=== PATIENT | female | born 1980 | race Caucasian/White ===

== ENCOUNTER 2018-12-23 17:49 | Inpatient (IN) | payer OTHER, SELFPAY ==
[2018-12-23 17:57] VITALS: BMI 46.5
--- NOTE | 2018-12-23 18:14 | HP.PCM_ITS ---
Problem List (1) Cellulitis Status: Acute Qualifiers: Site of cellulitis: face Qualified Code(s): L03.211 - Cellulitis of face (2) Morbid obesity Status: Chronic (3) Nicotine dependence Status: Acute Qualifiers: Nicotine product type: cigarettes Substance use status: unspecified nicotine-induced disorder Qualified Code(s): F17.219 - Nicotine dependence, cigarettes, with unspecified nicotine-induced disorders History of Present Illness Date of Admission: 12/23/18 Chief Complaint: Facial swelling - 2 days The patient is a 38 year old F with no significant past medical history, who comes in with right facial swelling that started 2 nights ago. Patient woke up with swelling over his cheek, and seemed to have gotten worse. She went to the [facility] and was seen and given IV Unasyn and pain medication. She had CT scan of the face significant inflammatory warp changer the right maxillary antrum and the surrounding soft tissues especially the muscles of mastication involving the right temporal exam lateral pterygoid muscles. There was no obvious fluid collection or bony erosion. Patient admits to dental caries. Shee denied any fever or chills or shortness of breath. She requested transfer to [facility]. Her white cell count was 14.7, hemoglobin 13.1, platelet 343, sodium was 140, potassium 4.1, chloride 105, bicarbonate 27, glucose 143, BUN 10, creatinine 0.78, test was negative. 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 Paternal History Items: - - Patient was adopted. Review of Systems Constitutional: Denies: Anorexia, Chills, Fever, Malaise, Weakness, Weight Change, Fatigue Eyes: Denies: Blurred vision, Cataracts, Conjunctivae Inflammation, Pain, Redness, Vision Change HEENT: Denies: Difficulty Hearing, Difficulty Swallowing, Head Aches, Hearing Changes, Sinus Congestion, Sinus Drainage Cardiovascular: Denies: Chest Pain, Claudication, Orthopnea, Palpitations, Pa roxysmal Noc. Dyspnea Respiratory: Denies: Cough, Hemoptysis, Shortness of breath at rest, Shortness of breath upon exertion, Sputum production Gastrointestinal: Denies: Abdominal Pain, Constipation, Hematemesis, Nausea, Vomiting Genitourinary: Denies: Dysuria, Frequency Musculoskeletal: Denies: Joint Pain, Joint stiffness, Joint swelling, Joint Tenderness Skin: Denies: Rash, Wounds Neurological: Denies: Difficulty swallowing, Focal weakness, Numbness, Tingling Psychiatric: Denies: Anxiety, Depression, Homicidal Ideations, Suicidal Ideations Hematologic/ Lymphatic: Denies: Easy Bruising, Easy Bleeding VTE Information - Inpt Only VTE Present on Admission: No VTE Pharm Prophylaxis ordered?: Yes Patient Problems: Active and Suspected Problems Cellulitis (Acute) Nicotine dependence (Acute) - Physical Exam General: Alert, Oriented x3, Cooperative, No apparent distress HEENT: Atraumatic, PERRLA, EOMI, Normocephalic Oral: Moist Mucosa Neck: Supple Lungs: Clear to auscultation, Normal air movement Cardiovascular: Regular rate, Regular Rhythm, Normal S1, Normal S2, No murmurs Abdomen: Bowel Sounds Present, Soft, Non Tender, Non-Distended, No Hepato- splenomegaly Extremities: No edema Skin: No rashes, No breakdown Musculoskeletal: No Tenderness to Palpation of Joints or Extremities Lymphatic: No Cervical, Supraclavicular, or Inguinal Adenopathy Neurological: Cranial nerves II-XII grossly intact, Neuro grossly intact Psych/Mental Status: Normal Affect, Appropriate Assessment/Plan All Active Problems Cellulitis (Acute) Nicotine dependence (Acute) 38 year old F with no significant past medical history, who comes in with right facial swelling that started 2 nights ago. 1. Right facial/Maxillary cellulitis without sepsis, secondary to dental caries Plan: Admit to MedSurg floor, IV fluids, IV antibiotics - IV Unasyn, maxillofacial consult 2. Morbid Obesity, BMI 46.5, diet and exercises recommended. 3. DVT PPx- early ambulation Code Visit Inpatient E&M: 53325 Init Hosp L3
[2018-12-23 18:47] VITALS: BP 132/75; PULSE 86; RESP 18; TEMP 36.6; O2SAT 97
[2018-12-23 19:32] VITALS: PULSE 111
[2018-12-23] MEDS: oxyCODONE 5 MG Tablet PO (19:50)
[2018-12-23] MEDS: 0.9% Normal Saline 1,000 ML 75 ML IV (21:32)
[2018-12-23] MEDS: Naproxen 500 MG Tablet PO (21:32)
[2018-12-23 21:40] VITALS: BP 131/74; PULSE 84; RESP 16; TEMP 37.2; O2SAT 99
[2018-12-24] VITALS (8 sets, daily range): BP systolic 99–122; BP diastolic 52–75; PULSE 54–80; RESP 16–18; TEMP 36.3–36.9; O2SAT 98–100
[2018-12-24] MEDS: oxyCODONE 5 MG Tablet PO ×2 (03:53→21:39)
[2018-12-24 05:11] LABS: Absolute Lymphocyte Count 3.26 X10^3/ul (0.83-4.51); Absolute Neutrophil Count 5.3 X10^3/uL (2.0-7.7); Basophil# 0.05 X10^3/uL; Basophil% 0.5 % (0-1); Eosinophil# 0.49 X10^3/uL; Hematocrit 35.2 % (37-47); Hemoglobin 11.4 g/dl (12.0-15.0); Lymphocyte # 3.26 X10^3/ul (4.0); Lymphocyte % 33.1 % (19-41); Mean Corp Hgb Conc 32.4 g/gl (32-36); Mean Corpuscular Hgb 26.7 pg (27.0-32.0); Mean Corpuscular Volume 82.4 fL (81-99); Mean Platelet Vol. 8.4 fl (6.2-12.0); Monocyte# 0.75 X10^3/uL; Monocyte% 7.6 % (0-10); Neutrophil # 5.27 X10^3/uL (2.7-7.7); Neutrophil % 53.5 % (47-70); Platelet Count 299 K/mm3 (150-450); RBC Distribution Width CV 15.1 % (11.6-14.6); RBC Distribution Width SD 44.4 fl (35.1-43.9); Red Blood Count 4.27 M/mm3 (4.2-5.4); White Blood Count 9.9 K/mm3 (4.4-11.0)
[2018-12-24 05:18] LABS: POSITIVE COUNT NO; POSITIVE DIFFERENTIAL NO; POSITIVE MORPHOLOGY NO
[2018-12-24 05:35] LABS: ALB/GLOB Ratio 0.8 RATIO (0.9-2.4); AST(SGOT) 6 U/L (15-37); Alanine Aminotransfer ALT/SGPT 13 U/L (13-56); Albumin, Serum 2.7 g/dL (3.2-5.0); Alkaline Phosphatase 81 U/L (45-117); Anion Gap 4 (5-15); BUN 10 mg/dL (7-18); BUN/Creat Ratio 10.7 RATIO (10-20); Chloride 110 mmol/L (98-107); Creatinine, Serum 0.93 mg/dL (0.55-1.02); EST Glomerular Filtration Rate 72 mL/min (>60); Est Glom Filt Rate - Afr Amer 87 mL/min (>60); Estimated Creatinine Clearance 77.53 ml/min; Globulin 3.4 g/dL (2.2-4.2); Glucose 156 mg/dL (74-106); Potassium 3.7 mmol/L (3.5-5.1); Protein, Total 6.1 g/dL (6.4-8.2); Sodium Level 141 mmol/L (136-145)
[2018-12-24 07:57] LABS: Hemoglobin A1c 6.1 % (4.2-6.3)
--- NOTE | 2018-12-24 08:04 | PCM.PROGNOTE ---
Patient Problems: Active and Suspected Problems Cellulitis (Acute) Subjective: Chief complaint: Follow-up after admission for right facial/maxillary cellulitis attributed to dental caries. Patient seen and examined. No acute events overnight. Right side of her face and cheek is still swollen, mild erythema. Denies fever chills. Denied pain on swallowing or mastication. Her vital signs are stable. - Physical Exam General: Alert, Oriented x3, Cooperative, No apparent distress HEENT: Atraumatic, PERRLA, EOMI, Normocephalic Oral: Moist Mucosa, No Gingival or Mucosal Lesions/ Ulcerations, - - Dental caries on the upper and lower incisors on the right side, soft tissue swelling. Swelling and erythema on the right cheek. Neck: Supple, No JVD, Negative Carotid Bruits, Trachea Midline, Thyroid Normal Size and Texture Lungs: Clear to auscultation, Normal air movement, No rhonchi, No wheeze, No rales Cardiovascular: Regular rate, Regular Rhythm, Normal S1, Normal S2, No murmurs, PMI Normal Abdomen: Bowel Sounds Present, Soft, Non Tender, Non-Distended, No Hepato-splenomegaly, Obese Extremities: No clubbing, No cyanosis, No edema Skin: No rashes, No breakdown Lymphatic: No Cervical, Supraclavicular, or Inguinal Adenopathy Neurological: Cranial nerves II-XII grossly intact, Motor Exam 5/5 strength throughout Psych/Mental Status: Normal Affect, Appropriate, Alert and oriented to time, place, person, mood and affect Vital Signs Temp Pulse Resp BP Pulse Ox 97.4 F L 69 18 99/65 99 12/24/18 03:40 12/24/18 04:01 12/24/18 03:40 12/24/18 03:40 12/24/18 03:40 Oxygen Delivery Method Room Air Weight: 288 lb 3.2 oz Body Mass Index (BMI) 46.5 Intake and Output for Last 24 Hours 12/22/18 12/23/18 12/24/18 23:59 23:59 23:59 Intake Total 1580 / 1580 Balance 1580 / 1580 Laboratory Tests Past 24 Hrs 12/24/18 12/24/18 12/24/18 05:04 05:04 05:04 WBC 9.9 RBC 4.27 Hgb 11.4 L Hct 35.2 L MCV 82.4 MCH 26.7 L MCHC 32.4 RDW 15.1 H RDW Differential 44.4 H Plt Count 299 MPV 8.4 Immature Gran % (Auto) 0.300 Neut % (Auto) 53.5 Lymph % (Auto) 33.1 Rhea % (Auto) 7.6 Eos % (Auto) 5.0 Baso % (Auto) 0.5 Absolute Neuts (auto) 5.3 Absolute Lymphs (auto) 3.26 Total Counted Not Reportable Sodium 141 Potassium 3.7 Chloride 110 H Carbon Dioxide 27.0 Anion Gap 4 L BUN 10 Creatinine 0.93 Estim Creat Clear Calc 77.53 Est GFR (MDRD) Af Amer 87 Est GFR (MDRD) Non-Af 72 BUN/Creatinine Ratio 10.7 Glucose 156 H Hemoglobin A1c 6.1 Calcium 8.0 L Total Bilirubin 0.40 AST 6 L ALT 13 Alkaline Phosphatase 81 Total Protein 6.1 L Albumin 2.7 L Globulin 3.4 Albumin/Globulin Ratio 0.8 L Medical Necessity - Tobacco Use Smoking Status: Current every day smoker Tobacco Use: Cigarettes Assessment/Plan All Active Problems Cellulitis (Acute) This is a 38 years old female patient admitted directly from outside facility for right facial/maxillary cellulitis secondary to dental caries. #1 acute right facial/maxillary cellulitis: Patient has significant dental caries on the right side, both an upper incisors. Reportedly, she had CT scan neck done at the outside facility that revealed significant inflammatory changes over the right maxillary antrum and surrounding tissue and muscles, no evidence of fluid collection or abscess formation. Patient is on IV Unasyn. Her vital signs are stable, afebrile. Yesterday, WBC was 14.7, it came down back to normal today. Maxillofacial surgery consulted, awaiting their recommendations. Plan to continue same treatment. #2 morbid obesity: Diet and exercise recommended. #3 tobacco abuse: She is on NicoDerm patch. #4 DVT prophylaxis: Low risk patient, no prophylaxis indicated, ambulate. This note was generated with [employer] dictation software. It may contain incorrect words, spelling, and punctuation that were not noted in checking the note before signing. Code Visit Inpatient E&M: 22958 Subs Hosp L2
[2018-12-24] MEDS: Naproxen 500 MG Tablet PO ×2 (08:26→14:07)
--- NOTE | 2018-12-24 11:15 | CASEMGMT ---
BEULAH COVARRUBIAS Face to Face with patient for initial transition planning/care coordination assessment. RN CM introduced self and role at [facility]. Patient lying in bed, alert and oriented. Patient willing to participate in assessment and is able to answer all questions appropriately. Care providers, pharmacy, and demographics verified. Patient wishes to discharge home, denies need for home health at this time. Patient states she has no further needs or concerns at this time. CM to follow for discharge planning needs that may arise. PCP: Vipul Specialists: None [facility]erred [facility]acy: [facility] Insurance: MMO Prescription Benefit: yes Living Will/HPOA: none LNOK: mother Living Arrangements: Patient lives alone in an apartment. 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 Disposition Plan: Patient to discharge home with family support and follow-up plans in place. Helen NOEL, RN, CM
[2018-12-24] MEDS: 0.9% Normal Saline 1,000 ML 75 ML IV (11:49)
[2018-12-25 03:20] VITALS: BP 111/67; PULSE 66; RESP 16; TEMP 36.5; O2SAT 99
[2018-12-25] MEDS: Naproxen 500 MG Tablet PO (03:24)
--- NOTE | 2018-12-25 08:01 | DCINST_ITS ---
- Discharge Diagnoses Current Active Problems: Current Active and Chronic Problems Cellulitis (Acute) Morbid obesity (Chronic) Nicotine dependence (Chronic) You will use the following diet at home:: Regular Your food should be the consistency of: Regular Discharge Activity: Return to Normal Activity Weight Bearing Status: Full weight bearing Call your doctor if you observe: Fever of 101 or Higher, Shortness of breath, Dizziness, Fainting spells, Chest pain, Increased palpitations (irregular heartbeat), Uncontrolled pain Allergies/Adverse Reactions: Allergies No Known Allergies Allergy (Verified 12/23/18 19:05) Medications to take at Discharge Cholecalciferol (Vitamin D3) [Vitamin D3] 2,000 unit PO DAILY 12/23/18 Naproxen 500 mg PO BID PRN PRN 12/23/18 Amox/Clavulanate Tablet [Augmentin Tablet] 875 mg PO Q12H #14 tablet 12/25/18 The following prescriptions were given: Amox/Clavulanate Tablet [Augmentin Tablet] 875 mg PO Q12H #14 tablet Primary Care Physician: Marie Matthew NP-C [Primary Care Provider] - Please follow up with your Primary Care Physician in: 1 week. Test Results: Test results from this visit will be discussed in further detail at your follow- up appointment, if applicable. Please Follow Up With: Joel Irving DDS When: This coming week.. Please call his office.
[2018-12-25 10:22] VITALS: BP 140/89; PULSE 89; RESP 18; TEMP 37.3; O2SAT 98
[2018-12-25] MEDS: oxyCODONE 5 MG Tablet PO (11:08)
[2018-12-25] MEDS: Acetaminophen 325 MG Tablet 650 MG PO (11:09)
--- NOTE | 2018-12-25 13:31 | PCM.DC.SUM ---
Discharge Date and Diagnosis Date of Admission: 12/23/18 Date of Discharge: 12/25/18 - Primary Discharge Diagnosis Acute right facial/maxillary cellulitis attributed to dental caries. - Secondary Discharge Diagnosis Chronic Problems Morbid obesity (Chronic) Nicotine dependence (Chronic) Hospital Course and Treatment Operations: None Procedures: None Summary of Care Provided: Patient seen and examined on the day of discharge and appeared to be stable to be discharged home. Swelling on the right side of her face and cheek started to subside, complained of mild pain. She has been afebrile, other vital signs are stable. The patient is a 38 year old F admitted directly from outside facility for right facial/maxillary cellulitis due to dental caries. She was found to have significant dental caries on the right upper and lower incisors with soft tissue swelling and edema. At the outside facility, she was found to have leukocytosis and she had CT scan neck that revealed significant inflammatory changes over the right maxillary antrum and surrounding tissues and involves the muscles without evidence of fluid collection or abscess formation. Patient was treated with IV Unasyn, pain medications and IV fluids. With IV antibiotic therapy, her white blood cell count returned back to normal. Maxillofacial surgery consulted but Dr. Irving is out of town until this coming Saturday. The swelling of the right face started to improve and subside and patient remained afebrile. With local improvement of the cellulitis I felt, being afebrile for 24 hours and resolution of leukocytosis, that the patient can be safely treated with IV antibiotics while in the hospital and then transition to oral antibiotic upon discharge and there was no urgent need or indication for referral or transfer to another facility for evaluation by maxillofacial surgery. I spoke with the patient about this issue and she agreed to stay in this hospital and to be discharged with oral antibiotics. Patient discharged home in a stable medical condition, discharged on Augmentin twice daily for 7 days of treatment, discharged on OxyIR PRN 12 hours for pain, recommended follow-up with maxillofacial surgery this coming week, follow-up with PCP in 1 week. - Physical Exam General: Alert, Oriented x3, Cooperative, No apparent distress HEENT: Atraumatic, PERRLA, EOMI, Normocephalic Oral: Moist Mucosa, No Gingival or Mucosal Lesions/ Ulcerations, - - Significant dental caries and soft tissue swelling and edema of the right upper and lower incisors, lower jaw. Neck: Supple, No JVD, Negative Carotid Bruits, Trachea Midline, Thyroid Normal Size and Texture Lungs: Clear to auscultation, Normal air movement, No rhonchi, No wheeze, No rales Cardiovascular: Regular rate, Regular Rhythm, Normal S1, Normal S2, No murmurs, No Ectopic Activity Abdomen: Soft, Non Tender, Non-Distended, No Hepato-splenomegaly Extremities: No clubbing, No cyanosis, No edema Skin: No rashes, No breakdown Lymphatic: No Cervical, Supraclavicular, or Inguinal Adenopathy Neurological: Cranial nerves II-XII grossly intact, Motor Exam 5/5 strength throughout Psych/Mental Status: Normal Affect, Appropriate Vital Signs Temp Pulse Resp BP Pulse Ox 99.1 F 89 18 140/89 H 98 12/25/18 10:22 12/25/18 10:22 12/25/18 10:22 12/25/18 10:22 12/25/18 10:22 Oxygen Delivery Method Room Air Weight: 288 lb 2.307 oz Body Mass Index (BMI) 46.5 Intake and Output for Last 24 Hours 12/23/18 12/24/18 12/25/18 23:59 23:59 23:59 Intake Total 2610 / 2610 1852 Balance 2610 / 2610 1852 Discharge Activity: Return to Normal Activity Weight Bearing Status: Full weight bearing Call your doctor if you observe: Fever of 101 or Higher, Shortness of breath, Dizziness, Fainting spells, Chest pain, Increased palpitations (irregular heartbeat), Uncontrolled pain Home Medications: Medications to take at Discharge Cholecalciferol (Vitamin D3) [Vitamin D3] 2,000 unit PO DAILY 12/23/18 Naproxen 500 mg PO BID PRN PRN 12/23/18 Amox/Clavulanate Tablet [Augmentin Tablet] 875 mg PO Q12H #14 tablet 12/25/18 Oxycodone [Oxyir] 5 mg PO Q12H PRN PRN 3 Days #7 tab 12/25/18 Following Prescrptions Were Given to Patient: Oxycodone [Oxyir] 5 mg PO Q12H PRN PRN 3 Days #7 tab PRN Reason: pain Amox/Clavulanate Tablet [Augmentin Tablet] 875 mg PO Q12H #14 tablet Primary Care Physician: Marie Matthew NP-C [Primary Care Provider] - Please follow up with your Primary Care Physician in: 1 week. Please Follow Up With: Joel Irving DDS When: This coming week.. Please call his office. Disposition: Home Minutes spent on discharge:: 25 Patient Condition:: Stable Medical Necessity - Tobacco Use Smoking Status: Current every day smoker Tobacco Use: Cigarettes Meaningful Use Info Meaningful Use Diagnoses (Choose all that apply): None applicable Code Visit Inpatient E&M: 56564 Disch Hosp
== END 2018-12-25 11:33 | disposition home or self-care (01) | DRG 603 ==
PROVIDERS: Admitting Provider Internal Medicine; Family Provider Nurse Practitioner Family; PCP Nurse Practitioner Family; Referring Provider Internal Medicine; Visit Provider Hospitalist
DX: L03.211 Cellulitis of face (principal); Z68.42 Body mass index [BMI] 45.0-49.9, adult; E66.01 Morbid (severe) obesity due to excess calories; K02.9 Dental caries, unspecified; F17.210 Nicotine dependence, cigarettes, uncomplicated
CPT/HCPCS: 36415; 80053; 83036; 85025; 97802; 99406; J7030; J0295

== ENCOUNTER 2019-03-25 14:30 | Emergency (ER) | payer OTHER, SELFPAY ==
[2018-12-23 17:57] VITALS: BMI 46.5
[2019-03-25 14:30] VITALS: BP 132/79; PULSE 90; RESP 16; O2SAT 97
[2019-03-25 14:31] VITALS: BP 132/79; PULSE 95; RESP 16; TEMP 36.4; O2SAT 97; BMI 47.3
--- NOTE | 2019-03-25 14:46 | US_ITS ---
STUDY: FIRST TRIMESTER OBSTETRICAL ULTRASOUND REASON FOR EXAM: Female, 38 years old. Ectopic . Right lower quadrant pain. HCG 24,000. LMP: 01/13/2019. TECHNIQUE: Transvaginal. TECHNICAL QUALITY: Adequate. PRIOR ULTRASOUND: None. FINDINGS: Gravid uterus measures 10.1 x 5.9 x 6.6 cm. Intrauterine gestational sac is present with a normal yolk sac. There is a single live intrauterine gestation. Cardiac activity is documented with heart rate of 124. Mean sonographic estimated gestational age based on crown-rump length measures 6 weeks 2 days, with estimated date of delivery 11/16/2019. Right ovary is normal in size and echogenicity, measuring 3.1 x 1.8 x 2 cm. No mass or dominant cyst. Left ovary is not visualized. No free fluid in the cul-de-sac. US/Transvaginal w/Preg US IMPRESSION: Single live intrauterine gestation with EGA 6 weeks 2 days. Electronically Signed: Yvonne Keller MD at 16:52 EDT Tel , Service support ,
--- NOTE | 2019-03-25 15:04 | ED.DCSUM_ITS ---
- ER Visit Summary Date of Service: 03/25/19 Chief Complaint: Here for ultrasound History of Present Illness: The patient is a 38 F who thinks she is about 8 weeks . She was seen in an outside emergency department and had a hCG quant of 24,000. Basic labs and urinalysis unremarkable. She was referred here because they did not have ultrasound available. She complains of pain but denies any other symptoms like bleeding, discharge, fever, or any other symptoms. Physical Examination: Afebrile. Blood pressure 132/79. No acute distress. Abdomen is soft. Mild tenderness in the right pelvis. Skin appears normal. Test Results: Ultrasound ordered. Emergency Department Course and Treatment: Patient presents to rule out ectopic . She was already discussed with Dr. Suero. There is no indication to repeat her other testing. I performed a bedside ultrasound and identified the uterus, but I did not identify an intrauterine . Formal ultrasound was ordered. Live intrauterine at 6 weeks and 2 days. heart rate of 124. 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 Return for bleeding, increasing pain, or any other concerning symptoms. Treatment Plan: As above Disposition: Discharge Impression: 1. Live intrauterine This note was generated with [employer] software. It may contain incorrect words, spelling, and punctuation that were not noted in review of the chart prior to signing ED Disposition - Plan for ED Patient: Referrals: Marie Matthew NP-C [Primary Care Provider] -
--- NOTE | 2019-03-25 17:01 | ED.DEP ---
ED Disposition - Plan for ED Patient: Instructions: Adapting to : First Trimester Referrals: Nikhil Suero MD [STAFF PHYSICIAN] -
[2019-03-25 17:13] VITALS: RESP 16
== END 2019-03-25 17:14 | disposition home or self-care (01) ==
LOC: ED 15:01
PROVIDERS: Emergency Provider Emergency Medicine; Family Provider Nurse Practitioner Family; PCP Nurse Practitioner Family
DX: O26.891 Other specified pregnancy related conditions, first trimester (principal); R10.2 Pelvic and perineal pain; O99.331 Smoking (tobacco) complicating pregnancy, first trimester; F17.200 Nicotine dependence, unspecified, uncomplicated; Z3A.01 Less than 8 weeks gestation of pregnancy
CPT/HCPCS: 76817; 99282

== ENCOUNTER → 2019-08-19 11:23 | Outpatient (CLI) | payer OTHER, SELFPAY ==
[2019-08-19 12:09] LABS: Hematocrit 34.3 % (37-47); Hemoglobin 10.1 g/dL (12.0-15.0); Mean Corp Hgb Conc 29.4 g/dL (32-36); Mean Corpuscular Hgb 21.4 pg (27.0-32.0); Mean Corpuscular Volume 72.8 fL (81-99); Mean Platelet Vol. 9.2 fl (6.2-12.0); Platelet Count 345 K/mm3 (150-450); RBC Distribution Width CV 17.6 % (11.6-14.6); RBC Distribution Width SD 46.1 fl (35.1-43.9); Red Blood Count 4.71 M/mm3 (4.2-5.4)
[2019-08-19 12:23] LABS: International Normalized Ratio 1.1; Prothrombin Time (Protime)PT. 13.6 SECONDS (11.7-14.9)
[2019-08-19 12:24] LABS: Partial Thromboplast Time 31.1 Seconds (24.1-36.2)
[2019-08-19 12:40] LABS: Thyroid Stim Hormone (TSH) 3.77 uIU/mL (0.358-3.74)
[2019-08-21 12:33] LABS: HPV HC, High Risk Negative (Negative)
== END ==
PROVIDERS: Visit Provider Advanced Practice Midwife
DX: Z12.4 Encounter for screening for malignant neoplasm of cervix (principal); N92.0 Excessive and frequent menstruation with regular cycle
CPT/HCPCS: 36415; 84443; 85027; 85610; 85730; 87624; 88175; G0145

== ENCOUNTER → 2019-10-22 17:12 | Outpatient (CLI) | payer MEDICAID, SELFPAY ==
[2019-10-22 20:21] LABS: Chlamydia Trachomatis by PCR Negative (Negative); Neisserai gonorrhoeae by PCR Negative (Negative); Probe Check PASS; Sample Adequacy Control PASS; Specimen Processing Control PASS
== END ==
PROVIDERS: Referring Provider Obstetrics & Gynecology; Visit Provider Obstetrics & Gynecology
DX: Z11.3 Encounter for screening for infections with a predominantly sexual mode of transmission (principal)
CPT/HCPCS: 87491; 87591

== ENCOUNTER → 2019-10-27 | Outpatient (CLI) | payer MEDICAID, SELFPAY ==
[2019-10-27 17:57] LABS: Absolute Lymphocyte Count 2.76 X10^3/uL (0.83-4.51); Absolute Neutrophil Count 6.8 X10^3/uL (2.0-7.7); Basophil# 0.06 X10^3/uL; Basophil% 0.6 % (0-1); Eosinophil# 0.29 X10^3/uL; Eosinophils% 2.7 % (0-5); Hemoglobin 11.5 g/dL (12.0-15.0); Lymphocyte # 2.76 X10^3/ul (4.0); Mean Corp Hgb Conc 31.1 g/dL (32-36); Mean Corpuscular Hgb 23.5 pg (27.0-32.0); Mean Corpuscular Volume 75.7 fL (81-99); Mean Platelet Vol. 9.1 fl (6.2-12.0); Monocyte# 0.72 X10^3/uL; Monocyte% 6.8 % (0-10); NRBC Flagged by Analyzer 0 % (0-5); Neutrophil # 6.75 X10^3/uL (2.7-7.7); Neutrophil % 63.6 % (47-70); POSITIVE MORPHOLOGY YES; Platelet Count 337 K/mm3 (150-450); RBC Distribution Width SD 58.9 fl (35.1-43.9); Red Blood Count 4.89 M/mm3 (4.2-5.4); White Blood Count 10.6 K/mm3 (4.4-11.0)
[2019-10-27 18:03] LABS: Differential Indicated SCAN CRITERIA MET
[2019-10-27 18:19] LABS: Thyroid Stim Hormone (TSH) 2.47 uIU/mL (0.358-3.74)
[2019-10-27 18:21] LABS: Amphetamine Urine VISTA NEGATIVE (<1000 ng/mL); Barbiturate Urine VISTA NEGATIVE (< 200 ng/mL); Benzodiazepine Urine VISTA NEGATIVE (< 200 ng/mL); Cocaine Urine VISTA NEGATIVE (< 300 ng/mL); Ecstacy Urine VISTA NEGATIVE (< 500 ng/mL); Methadone Urine VISTA NEGATIVE (< 300 ng/mL); PCP Urine VISTA NEGATIVE (< 25 ng/mL); THC Urine VISTA NEGATIVE (< 50 ng/mL); Vista UDS pH Range 6
[2019-10-27 18:32] LABS: Anisocytosis 1+; Differential Comment SCANNED
[2019-10-27 18:58] LABS: Color, Urine Yellow (Yellow); Glucose, Dipstick Normal (Normal); Ketone-Dipstick Negative (Negative); Leukocyte Esterase-Dipstick Negative /ul (Negative); Nitrite-Dipstick Negative (Negative); Occult Blood-Urine Negative /ul (Negative); Protein-Dipstick Negative (Negative); Urine Bilirubin Dipstick Negative (Negative); Urine Clarity Clear (Clear); Urine Urobilinogen Normal (Normal)
[2019-10-28 09:07] LABS: HIV - WCH Non-Reactive (Nonreactive); Hepatitis B Surface Antigen Non-Reactive (Nonreactive); Hepatitis C Antibody Non-Reactive (Nonreactive); Rubella IgG 55.7 IU/mL
[2019-10-29 00:57] LABS: Prenatal RPR NONREACTIVE (NONREACTIVE)
== END | disposition home or self-care (01) ==
PROVIDERS: Referring Provider Obstetrics & Gynecology; Visit Provider Obstetrics & Gynecology
DX: Z34.81 Encounter for supervision of other normal pregnancy, first trimester (principal)
CPT/HCPCS: 80307; 81002; 84443; 85025; 86703; 86762; 86803; 87340

== ENCOUNTER → 2020-03-10 09:11 | Outpatient (CLI) | payer MEDICAID, SELFPAY ==
[2020-03-10 09:43] LABS: Hematocrit 33.8 % (37-47); Hemoglobin 10.9 g/dL (12.0-15.0); Mean Corp Hgb Conc 32.2 g/dL (32-36); Mean Corpuscular Hgb 28.4 pg (27.0-32.0); Platelet Count 213 K/mm3 (150-450); RBC Distribution Width CV 16.8 % (11.6-14.6); RBC Distribution Width SD 53.7 fl (35.1-43.9); Red Blood Count 3.84 M/mm3 (4.2-5.4)
[2020-03-10 09:48] LABS: Glucose Challenge Gest 1H 50g 240 mg/dL (70-140)
== END ==
PROVIDERS: Visit Provider Obstetrics & Gynecology
DX: Z34.82 Encounter for supervision of other normal pregnancy, second trimester (principal)
CPT/HCPCS: 36415; 82950; 85027

== ENCOUNTER 2020-03-22 16:00 | Outpatient (RCR) | payer MEDICAID, SELFPAY | END 2020-04-05 23:59 | disposition home or self-care (01) | LOC: NS 16:00 | PROVIDERS: Visit Provider Obstetrics & Gynecology | DX: Z71.3 Dietary counseling and surveillance (principal); O24.410 Gestational diabetes mellitus in pregnancy, diet controlled; Z3A.00 Weeks of gestation of pregnancy not specified | CPT/HCPCS: 97802; G0108 ==

== ENCOUNTER → 2020-05-12 | Outpatient (CLI) | payer MEDICAID, SELFPAY | END | disposition home or self-care (01) | LOC: LABSPEC 14:58 | PROVIDERS: Visit Provider Obstetrics & Gynecology | DX: Z36.85 Encounter for antenatal screening for Streptococcus B (principal) | CPT/HCPCS: 87081 ==

== ENCOUNTER → 2020-05-25 09:41 | Outpatient (CLI) | payer MEDICAID, SELFPAY ==
[2020-05-25 13:16] LABS: Probe Check PASS; Specimen Processing Control PASS
== END ==
PROVIDERS: Referring Provider Obstetrics & Gynecology; Visit Provider Obstetrics & Gynecology
DX: Z03.818 Encounter for observation for suspected exposure to other biological agents ruled out (principal); Z34.83 Encounter for supervision of other normal pregnancy, third trimester
CPT/HCPCS: 87635; C9803; U0002

== ENCOUNTER 2020-05-27 04:57 | Inpatient (IN) | payer MEDICAID, SELFPAY ==
--- NOTE | 2020-05-26 20:49 | PCM.HPOB.BLA ---
History and Physical Date of Admission: 05/27/20 Chief complaint: Repeat History of present illness: 39-year-old G4, P3 at 39 weeks and 0 days with RONAN: 06/03/20 x 8-week ultrasound arrives for repeat section. Patient denies headache, visual changes, nausea vomiting, chest pain, shortness of breath, right upper quadrant pain. Patient states good movement. Patient denies vaginal bleeding or leakage of fluid. 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: G1: 43-week primary male 06/19/2002 G2 39-week repeat male 02/10/2004 G3: 39-week repeat female 02/27/2006 G4: Current Past medical history: GDM A2 Past surgical history: section x3, D&C Medications: Levemir 20 units every morning Allergies: No known drug allergies Social: Smoker half pack per day, denies alcohol use or drug use Family history: Denies history of DVT or PE Review of systems: Besides the above pertinent positives a full review of systems was performed and found to be negative Physical exam: Vital Signs Temp Pulse Resp BP Pulse Ox 05/27/20 06:00 98.2 F 81 16 111/55 L 98 General: Normal-appearing no acute distress HEENT: Normocephalic atraumatic no cervical lymphadenopathy Cardiac/respiratory: Nonlabored breathing, nonpressured speech, no use of accessory muscles Abdomen: Soft, nontender, gravid. Positive bowel sounds. No rebound tenderness or guarding Extremities: No peripheral edema normal peripheral pulses Neuro: Cranial nerves II through XII intact Psych: Normal affect normal demeanor nonpressured speech Mom's Labs & Results 05/27/20 05/27/20 05/27/20 05:10 05:10 06:41 WBC 12.9 H RBC 4.45 Hgb 12.2 Hct 38.0 MCV 85.4 MCH 27.4 MCHC 32.1 RDW Std Deviation 47.9 H RDW Coeff of Shari 15.3 H Plt Count 237 MPV 8.4 Immature Gran % (Auto) 1.200 H Neut % (Auto) 69.7 Lymph % (Auto) 19.3 [place] % (Auto) 7.8 Eos % (Auto) 1.7 Baso % (Auto) 0.3 Absolute Neuts (auto) 9.0 H Absolute Lymphs (auto) 2.50 Nucleated RBC % 0 POC Glucose 114 H Blood Type O POSITIVE Antibody Screen NEGATIVE Labs Blood Type: O RH: POSITIVE RPR/VDRL/Syphilis Nonreactive Rubella status Immune HbSAg Negative Date Done: 10/27/19 Chlamydia Negative Gonorrhea Negative HIV/AIDS Non-Reactive Group B Strep: Negative Assessment and plan: 39-year-old G4, P3 at 39 weeks and 0 days for repeat with GDM A2 -Admit to labor and delivery -3 g Ancef -Routine orders -GDM A2: For preoperative blood sugar and fasting blood sugar operative day 1. Otherwise no other blood sugars indicated -Anesthesia to see
[2020-05-27] VITALS (21 sets, daily range): BP systolic 82–112; BP diastolic 37–77; PULSE 61–81; RESP 14–16; TEMP 35.9–36.8; O2SAT 95–98; BMI 50.3
[2020-05-27] MEDS: Lactated Ringers 1,000 ML 999 ML IV (05:10)
[2020-05-27 05:33] LABS: Basophil# 0.04 X10^3/uL; Basophil% 0.3 % (0-1); Eosinophil# 0.22 X10^3/uL; Eosinophils% 1.7 % (0-5); Hemoglobin 12.2 g/dL (12.0-15.0); Lymphocyte % 19.3 % (19-41); Mean Corp Hgb Conc 32.1 g/dL (32-36); Mean Corpuscular Hgb 27.4 pg (27.0-32.0); Mean Corpuscular Volume 85.4 fL (81-99); Mean Platelet Vol. 8.4 fl (6.2-12.0); Monocyte# 1.01 X10^3/uL; Monocyte% 7.8 % (0-10); NRBC Flagged by Analyzer 0 % (0-5); Neutrophil # 9.02 X10^3/uL (2.7-7.7); Neutrophil % 69.7 % (47-70); Platelet Count 237 K/mm3 (150-450); RBC Distribution Width CV 15.3 % (11.6-14.6); RBC Distribution Width SD 47.9 fl (35.1-43.9); Red Blood Count 4.45 M/mm3 (4.2-5.4); White Blood Count 12.9 K/mm3 (4.4-11.0)
[2020-05-27] MEDS: Acetaminophen 500 MG Tablet 1000 MG PO ×3 (06:16→18:31)
[2020-05-27] MEDS: Lactated Ringers 1,000 ML 150 ML IV (06:16)
[2020-05-27 06:46] LABS: Bedside Glucose 114 mg/dL (70-110)
[2020-05-27] MEDS: Sodium Citrate/Citric Acid 30 ML UDC PO (07:55)
[2020-05-27] MEDS: Oxytocin 30 units/NS 500 ml 30 UNITS/500 ML IV.SOLN 167 UNITS IV (08:56)
--- NOTE | 2020-05-27 09:28 | PCM.OPRPT ---
Delivery Classification: Scheduled test and research reactor operator: Delores Brian Type of Anesthesia:: Spinal Date of Procedure: 05/27/20 Pre-Operative Diagnosis: History of section, term, GDMA2, AMA Post-Operative Diagnosis: History of section, term, GDM A2, AMA Description of Procedure: Procedure: Repeat low transverse section via Pfannenstiel incision Surgeon: Dr. Cirilo Orosco EBL: 600 cc IV fluids: 1000 cc Urine output: 50 cc Complications: None Specimen: None Findings: Male in vertex position, Apgars 9/9. Normal uterus, tubes, ovaries. Consent: Patient with a history of section and GDM A2 along with AMA in need of repeat section. Patient understands the risk of the procedure includes but is not limited to visceral or vascular injury, prolonged hospitalization, blood loss and need for transfusion, reoperation. Patient stated understanding wished to proceed. All questions were and was answered and consent was signed. Procedure: Patient was brought back to the OR where spinal anesthesia was found to be adequate. 3 g of Ancef were given for infection prophylaxis. Patient was prepared and draped in a dorsal supine position with leftward tilt. A Pfannenstiel incision was made at the skin with a scalpel. Incision was carried down to the fascia with a scalpel. Fascia was excised and extended laterally. Inferior aspect of the fascia was grasped with a Soraya clamp and the underlying rectus) mentalis muscle were dissected off sharply with Rivera scissors. In a similar fashion the superior aspect of the fascia was grasped with a clamp and the underlying rectus muscle was dissected off sharply. Peritoneum was entered bluntly and extended superiorly and inferiorly with good visualization of the bladder. Bladder blade was inserted and vesicouterine peritoneum was identified. Low transverse hysterotomy incision was made. Incision was extended bluntly and laterally. Hand was placed into the hysterotomy and gentle fundal pressure was applied once the bladder blade was removed and the head was brought into the incision. Head and shoulders delivered with ease. Cord was cut and clamped and baby was handed off to nursing. Placenta was delivered via cord traction and fundal massage. IV oxytocin was initiated to facilitate uterine contractions. Uterus was exteriorized and closed in a continuous running fashion. Second layer was performed. Good hemostasis was noted. Uterus was placed back in the abdominal cavity. Good hemostasis was noted. Muscle was closed with mattress suture. Fascia was closed continuous running fashion. Skin was closed in a subcuticular fashion. All counts correct x2. Patient tolerated the procedure well was brought to recovery in a stable condition.
[2020-05-27] MEDS: Lactated Ringers 1,000 ML 100 ML IV ×2 (11:56→22:05)
[2020-05-27] MEDS: Senna/Docusate Sodium 1 Tablet PO (12:21)
--- NOTE | 2020-05-27 12:23 | NURSING ---
Dr. Cirilo Orosco would like a fasting blood sugar tomorrow morning.
[2020-05-27] MEDS: Ketorolac 30 MG/ML Syringe IV ×2 (15:53→22:33)
--- NOTE | 2020-05-27 20:15 | CASEMGMT ---
Social Work Assessment Labor and Delivery Unit Date of Referral: 05/27/2020 Time of Referral: 10:47 Date of Intervention: 05/27/2020 Time of Intervention: 20:15 Reason for Referral: Community resources, History of depression. History obtained from: MEDICAL RECORD, MOTHER OF BABY (MOB) Household composition: MOB reports she and FOB live in an apartment. Educational Status: High School Education Financial Status: Limited Infant Supplies: MOB reports has all needs met for baby including crib, car seat, clothes, diapers, wipes, etc. Childcare/Caregiver(s): MOB and FOB will be main caregivers. Transportation: MOB denies any transportation issues/concerns. Programs/Agencies Involved: [facility], [facility], [facility] Children Services/Legal Issues: MOB reports history of Children Services involvement with 2 other children in the past due to poor housing at that time. MOB reports does she son, Hema age 16 (Father has custody). MOB reports does not have much involvement with daughter, Ariadna age 14. MOB reports FOVickie's mother has custody. MOB denies any current open cases with Children Services. Behavioral Health Issues: Mental Health History: MOB reports history of depression/Post Depression with first child as he was a still born. MOB states was never prescribed medication and did not seek counseling. MOB reports is able to self cope. MOB denies any current concerns with mental health and denies any need for referrals. Substance Use History: MOB denies any history of substance abuse. MOB reports to occasionally consume alcohol and smokes 9-10 cigarettes/day. MOB reports they will not smoke in the house. FOB reports some depression due to his mother having cancer. FOB admits to history of drug use in the past in my 20's. FOB reports after his daughter was born (now age 22) quit using substances. FOB admits to smoking cigarettes. Family/Social Stressors: None reported Support Systems: MOB and FOB report good support from family/friends. Depression/Shaken Baby/Safe Sleeping: Reviewed and resources provided. ASSESSMENT: Met with MOB and FOB in room. Introduced role and reason for referral. MOB and FOB have been together 11 months ( for 2 months). MOB openly discussed prior history of Children Services involvement with 2 older children. MOB denies any open cases. MOB states is connected with [facility] and [facility]. MOB and FOB deny any issues with housing or transportation and report live together in an apartment. MOB discussed history of depression/PPD with first child as he was a still born. MOB reports to be doing well and is attempting to breastfeed. MOB nursing baby boy, Dudley during assessment. MOB delivered earlier today and reports is doing well. MOB and FOB decline any needs. Community resource list for [facility] provided. MOB and FOB thanked this worker for information. Collaboration with nurse, Jina. Jina denies any concerns at this time. PLAN: HOME WITH RESOURCES PROVIDED. No other services requested or indicated. -Shruti Ponce, COLLECTOR OF PORT, MVA REACTOR OPERATOR HEAD
[2020-05-27] MEDS: Enoxaparin 40 MG/0.4 ML Syringe SC (21:14)
--- NOTE | 2020-05-27 22:20 | NURSING ---
Updated Dr. Orosco that patient's urinary output has been low. Mcdaniels catheter removed. Plan is to continue current plan of care and Toradol is okay to give per Dr. Orosco.
[2020-05-27] MEDS: 0.9% Saline Lock 10 ML Syringe IV (22:34)
[2020-05-28] VITALS (7 sets, daily range): BP systolic 103–129; BP diastolic 53–71; PULSE 62–79; RESP 16–18; TEMP 35.9–36.6; O2SAT 96–99
[2020-05-28] MEDS: Acetaminophen 500 MG Tablet 1000 MG PO ×4 (01:28→21:23)
--- NOTE | 2020-05-28 02:30 | NURSING ---
RN into pt room at this time due to noting sound of IV pump alarm. RN noted pt IV placed in right antecubital, alarming due to bent arm. RN encouraged pt to straighten arm. Mother states I can't, I'm trying to feed him (the baby). Pt also states I need to go outside. I need to get away from him (gestured to ) and from this beeping. RN informed pt she would be unable to go outside with IV in place. Pt requests this RN notify primary care RN of pt request. This RN to notify primary RN of pt request.
--- NOTE | 2020-05-28 02:59 | NURSING ---
Patient requesting to go outside to smoke. Informed patient that her IV cannot be removed until she is able to void per policy. Patient verbalized understanding.
[2020-05-28] MEDS: 0.9% Saline Lock 10 ML Syringe IV (06:07)
[2020-05-28 06:22] LABS: Hematocrit 32.3 % (37-47); Hemoglobin 10.4 g/dL (12.0-15.0); Mean Corp Hgb Conc 32.2 g/dL (32-36); Mean Corpuscular Hgb 28.1 pg (27.0-32.0); Mean Corpuscular Volume 87.3 fL (81-99); Mean Platelet Vol. 8.6 fl (6.2-12.0); Platelet Count 192 K/mm3 (150-450); RBC Distribution Width CV 15.7 % (11.6-14.6); RBC Distribution Width SD 49.7 fl (35.1-43.9); White Blood Count 9.5 K/mm3 (4.4-11.0)
--- NOTE | 2020-05-28 06:36 | NURSING ---
Fasting blood glucose 150. Patient has been snacking throughout the night.
[2020-05-28 06:46] LABS: Bedside Glucose 150 mg/dL (70-110)
[2020-05-28 06:52] LABS: ALB/GLOB Ratio 0.6 RATIO (0.9-2.4); AST(SGOT) 18 U/L (15-37); Alanine Aminotransfer ALT/SGPT 14 U/L (13-56); Albumin, Serum 1.9 g/dL (3.2-5.0); Alkaline Phosphatase 101 U/L (45-117); Anion Gap 5 (5-15); BUN 16 mg/dL (7-18); BUN/Creat Ratio 19.5 RATIO (10-20); Calcium,Total 8.1 mg/dL (8.5-10.1); Chloride 108 mmol/L (98-107); Creatinine, Serum 0.82 mg/dL (0.55-1.02); EST Glomerular Filtration Rate 82 mL/min (>60); Est Glom Filt Rate - Afr Amer 100 mL/min (>60); Estimated Creatinine Clearance 87.08 ml/min; Globulin 3.3 g/dL (2.2-4.2); Glucose 141 mg/dL (74-106); Potassium 3.8 mmol/L (3.5-5.1); Protein, Total 5.2 g/dL (6.4-8.2); Sodium Level 138 mmol/L (136-145)
[2020-05-28] MEDS: Ibuprofen 600 MG Tablet PO ×3 (08:53→21:23)
--- NOTE | 2020-05-28 09:11 | PN.OBGYN_ITS ---
Subjective: No overnight complaints. Pain well controlled. Denies chest pain, shortness of breath, nausea vomiting. - Physical Exam Vitals/I&O's: Vital Signs Temp Pulse Resp BP Pulse Ox 96.7 F L 65 18 129/71 H 98 05/28/20 08:45 05/28/20 08:45 05/28/20 08:45 05/28/20 08:45 05/28/20 08:45 Oxygen Delivery Method Room Air Weight: 311 lb 11.738 oz Body Mass Index (BMI) 50.3 Intake and Output for Last 24 Hours 05/26/20 05/27/20 05/28/20 23:59 23:59 23:59 Intake Total 4915 / 4915 4303.33 / 4303.33 Output Total 350 / 350 900 / 900 Balance 4565 / 4565 3403.33 / 3403.33 General: Alert, Oriented x3, Cooperative, No apparent distress HEENT: Atraumatic, Normocephalic Oral: Moist Mucosa Neck: Supple Abdomen: Soft, Non Tender, - - Incision with bandage clean dry and intact Extremities: No clubbing, No cyanosis Psych/Mental Status: Normal Affect, Appropriate Laboratory Results 05/28/20 06:11: POC Glucose 150 H 05/28/20 06:15: WBC 9.5, RBC 3.70 L, Hgb 10.4 L, Hct 32.3 L, MCV 87.3, MCH 28.1, MCHC 32.2, RDW Std Deviation 49.7 H, RDW Coeff of Shari 15.7 H, Plt Count 192, MPV 8.6 05/28/20 06:15: Sodium 138, Potassium 3.8, Chloride 108 H, Carbon Dioxide 25.0, Anion Gap 5, BUN 16, Creatinine 0.82, Estim Creat Clear Calc 87.08, Est GFR (MDRD) Af Amer 100, Est GFR (MDRD) Non-Af 82, BUN/Creatinine Ratio 19.5, Glucose 141 H, Calcium 8.1 L, Total Bilirubin 0.20, AST 18, ALT 14, Alkaline Phosphatase 101, Total Protein 5.2 L, Albumin 1.9 L, Globulin 3.3, Albumin/Globulin Ratio 0.6 L Current Medications Acetaminophen (Acetaminophen 500 Mg Tablet) 1,000 mg PO Q6 [facility] Last Admin: 05/28/20 08:48 Dose: 1,000 mg Documented by: Bisacodyl (Bisacodyl 10 Mg Suppository) 10 mg RECTAL UD PRN PRN Reason: If no BM Diphenhydramine HCl (Diphenhydramine 25 Mg Capsule) 25 mg PO Q6H PRN PRN PRN Reason: ITCHING Stop: 05/28/20 09:53 Enoxaparin Sodium (Enoxaparin 40 Mg/0.4 Ml Syringe) 40 mg SC DAILY [facility] Last Admin: 05/27/20 21:14 Dose: 40 mg Documented by: Hydrocortisone (Hydrocortisone 2.5% Crm) 1 applic TOPICAL TID PRN PRN; Protocol PRN Reason: Discomfort Ibuprofen (Ibuprofen 600 Mg Tablet) 600 mg PO Q6H [facility] Last Admin: 05/28/20 08:53 Dose: 600 mg Documented by: Nalbuphine HCl (Nalbuphine 10 Mg/Ml Ampul) 5 mg IV Q3H PRN PRN PRN Reason: ITCHING Stop: 05/28/20 09:53 Naloxone HCl (Naloxone 0.4 Mg/Ml Syringe) 0.02 mg IV Q1M PRN PRN Reason: RR <10 and pt unresponsive Ondansetron HCl (Ondansetron 4 Mg/2 Ml Vial) 4 mg IV Q4H PRN PRN PRN Reason: Nausea Oxycodone HCl (Oxycodone 5 Mg Tablet) 5 mg PO Q4H PRN PRN PRN Reason: Pain Score 4-10 Prochlorperazine Edisylate (Prochlorperazine 10 Mg/2 Ml Vial) 10 mg IV Q6H PRN PRN PRN Reason: NAUSEA Senna/Docusate Sodium (Senna/Docusate Sodium 1 Tablet) 0 tablet PO DAILY [facility] Last Admin: 05/27/20 12:21 Dose: 1 tablet Documented by: Simethicone (Simethicone 80 Mg Tablet) 80 mg PO PCHS PRN PRN Reason: Indigestion/stomach pain Sodium Chloride (0.9% Saline Lock 10 Ml Syringe) 5 - 15 ml IV UD PRN PRN Reason: SALINE FLUSH Last Admin: 05/28/20 06:07 Dose: 10 ml Documented by: Medical Necessity - Tobacco Use Smoking Status: Light Smoker (<10/day) Assessment/Plan All Active Problems Cellulitis (Acute) Postop day 1 status post repeat section. Pain well controlled. Diffi culty spontaneously voiding this morning, straight cathed for 200 cc of urine. Upon evaluation patient only spontaneously voided in the bathroom. Breast- feeding. GDM A2 fasting blood sugar this morning 150, after discussing with the patient the patient ate cookies prior to fasting blood sugar. For 2-hour Glucola at visit. Possibly discharge home tomorrow.
[2020-05-28] MEDS: Senna/Docusate Sodium 1 Tablet PO (10:43)
[2020-05-28] MEDS: Enoxaparin 40 MG/0.4 ML Syringe SC (10:43)
--- NOTE | 2020-05-28 14:28 | NURSING ---
Discussed patient's pain level and medications that are due. Tylenol and Motrin given given per schedule. Will reassess pt pain in 1 hour. Advised patient to call nurse if Tylenol and Motrin ineffective. Pt verbalized understanding.
--- NOTE | 2020-05-28 15:02 | NURSING ---
ibclc round on patient, she reports that pumping is going well, she is pumping every 3 hours and denies any questions or concerns about the pumping. states she is attempting to put the baby to breast is SCN, he has suckled a few times for 5min but nothing yet is consistent due to IV fluids.
[2020-05-28] MEDS: oxyCODONE 5 MG Tablet PO (16:21)
--- NOTE | 2020-05-28 17:59 | NURSING ---
This RN agrees with Lauren RN charting and patient care.
[2020-05-29 02:41] VITALS: BP 91/47; PULSE 75; RESP 16; TEMP 36.4
[2020-05-29] MEDS: Acetaminophen 500 MG Tablet 1000 MG PO ×2 (02:43→09:03)
[2020-05-29] MEDS: Ibuprofen 600 MG Tablet PO ×2 (02:44→09:02)
[2020-05-29 09:05] VITALS: BP 108/62; PULSE 70; RESP 18; TEMP 36.3
--- NOTE | 2020-05-29 09:43 | PCM.PN.OB ---
Subjective: No overnight complaints. Pain well controlled. - Physical Exam Vitals/I&O's: Vital Signs Temp Pulse Resp BP Pulse Ox 97.6 F L 75 16 91/47 L 99 05/29/20 02:41 05/29/20 02:41 05/29/20 02:41 05/29/20 02:41 05/28/20 14:13 Oxygen Delivery Method Room Air Weight: 311 lb 11.738 oz Body Mass Index (BMI) 50.3 Intake and Output for Last 24 Hours 05/27/20 05/28/20 05/29/20 23:59 23:59 23:59 Intake Total 4915 / 4915 4403.33 / 4403.33 Output Total 350 / 350 1500 / 1500 Balance 4565 / 4565 2903.33 / 2903.33 General: Alert, Oriented x3, Cooperative, No apparent distress HEENT: Atraumatic, Normocephalic Oral: Moist Mucosa Neck: Supple, No JVD Abdomen: Soft, Non Tender, - - Incision clean dry and intact. Fundus firm and below umbilicus Extremities: No clubbing, No cyanosis, No edema Neurological: Neuro grossly intact Psych/Mental Status: Normal Affect, Appropriate, Alert and oriented to time, place, person, mood and affect Current Medications Acetaminophen (Acetaminophen 500 Mg Tablet) 1,000 mg PO Q6H [facility] Last Admin: 05/29/20 09:03 Dose: 1,000 mg Documented by: Bisacodyl (Bisacodyl 10 Mg Suppository) 10 mg RECTAL UD PRN PRN Reason: If no BM Enoxaparin Sodium (Enoxaparin 40 Mg/0.4 Ml Syringe) 40 mg SC DAILY [facility] Last Admin: 05/28/20 10:43 Dose: 40 mg Documented by: Hydrocortisone (Hydrocortisone 2.5% Crm) 1 applic TOPICAL TID PRN PRN; Protocol PRN Reason: Discomfort Ibuprofen (Ibuprofen 600 Mg Tablet) 600 mg PO Q6H [facility] Last Admin: 05/29/20 09:02 Dose: 600 mg Documented by: Naloxone HCl (Naloxone 0.4 Mg/Ml Syringe) 0.02 mg IV Q1M PRN PRN Reason: RR <10 and pt unresponsive Ondansetron HCl (Ondansetron 4 Mg/2 Ml Vial) 4 mg IV Q4H PRN PRN PRN Reason: Nausea Oxycodone HCl (Oxycodone 5 Mg Tablet) 5 mg PO Q4H PRN PRN PRN Reason: Pain Score 4-10 Last Admin: 05/28/20 16:21 Dose: 5 mg Documented by: Prochlorperazine Edisylate (Prochlorperazine 10 Mg/2 Ml Vial) 10 mg IV Q6H PRN PRN PRN Reason: NAUSEA Senna/Docusate Sodium (Senna/Docusate Sodium 1 Tablet) 0 tablet PO DAILY [facility] Last Admin: 05/28/20 10:43 Dose: 2 tablet Documented by: Simethicone (Simethicone 80 Mg Tablet) 80 mg PO PCHS PRN PRN Reason: Indigestion/stomach pain Sodium Chloride (0.9% Saline Lock 10 Ml Syringe) 5 - 15 ml IV UD PRN PRN Reason: SALINE FLUSH Last Admin: 05/28/20 06:07 Dose: 10 ml Documented by: Medical Necessity - Tobacco Use Smoking Status: Light Smoker (<10/day) Assessment/Plan All Active Problems Cellulitis (Acute) Postoperative day 2 status post repeat section. GDM A2, will follow for 2-hour GTT. Considering discharge home today pending health information administrator.
--- NOTE | 2020-05-29 09:45 | DCINST_ITS ---
Discharge Diet: No Restrictions Discharge Activity: Return to Normal Activity, May not drive while taking narcotic pain medications., May Shower, - - No tub baths for 2 weeks May resume sexual activity in: 2 weeks Weight Bearing Status: - - No lifting over 25 pounds for 3 weeks Call your doctor if your incision/area has: Foul Smelling Discharge Call your doctor if you observe: Fever of 101 or Higher, Shortness of breath, Chest pain Additional Instructions: If you experience any of the following, contact your healthcare provider. * Bleeding that soaks a pad every hour for 2 hours * Fever 100.4 or higher * Unrelieved incision or abdominal pain * Swelling, redness, discharge or bleeding from your incision or episiotomy site * Your incision begins to separate * Problems urinating (including inability to urinate or burning while urinating). * Visual changes * Severe headache * Flu-like symptoms * Pain or redness in one of both of your breasts * Pain, warmth, tenderness or swelling in your legs, especially the calf area * Frequent nausea and vomiting * Symptoms of depression or anxiety If you experience any of the following, call 911 or go to the nearest Emergency Room. * Chest pain * Problems breathing * Seizure activity * Partial or complete paralysis of a body part, slurred speech, weakness or drooping of the face, or a sudden inability to walk or hold your balance Allergies/Adverse Reactions: Allergies No Known Allergies Allergy (Verified 05/27/20 05:19) Medications to take at Discharge Insulin Detemir [Levemir Flextouch] 20 units SQ DAILY 05/27/20 Pnv No.95/Ferrous Fum/Folic AC [ Caplet] 1 tab PO DAILY 05/27/20 Follow-Up: Call to make an appointment with your doctor for an incision check in 1-2 weeks. You will also need a 6 week post- follow up appointment. Test results from this visit will be discussed in further detail at your follow- up appointment, if applicable. Please Follow Up With: Cirilo Orosco MD When: 2 weeks Primary Care Physician: Care Physician,No Primary [Primary Care Provider] -
[2020-05-29] MEDS: Senna/Docusate Sodium 1 Tablet PO (10:10)
[2020-05-29] MEDS: Enoxaparin 40 MG/0.4 ML Syringe SC (10:11)
== END 2020-05-29 10:28 | disposition home or self-care (01) | DRG 540 ==
PROVIDERS: Admitting Provider Obstetrics & Gynecology; Referring Provider Obstetrics & Gynecology; Visit Provider Obstetrics & Gynecology
PROC: 10D00Z1 Extraction of Products of Conception, Low, Open Approach (ICD-10-PCS; CPT 59514; principal; 2020-05-27 07:15)
DX: O34.211 Maternal care for low transverse scar from previous cesarean delivery (principal); O24.429 Gestational diabetes mellitus in childbirth, unspecified control; O99.334 Smoking (tobacco) complicating childbirth; F17.200 Nicotine dependence, unspecified, uncomplicated; Z03.818 Encounter for observation for suspected exposure to other biological agents ruled out; Z3A.39 39 weeks gestation of pregnancy; Z37.0 Single live birth
CPT/HCPCS: 80053; 82962; 85025; 85027; 86850; 86900; 86901; 87635; 99218; 99251; C9803; J7120; A4216; G0378; G0463; J2405; U0002

== ENCOUNTER → 2020-06-23 16:23 | Outpatient (CLI) | payer MEDICAID, SELFPAY ==
[2020-05-27 05:18] VITALS: BMI 50.3
[2020-06-23 18:34] LABS: Glucose 2 Hour Postprandial 152 mg/dL (<140)
== END ==
PROVIDERS: Visit Provider Obstetrics & Gynecology
DX: Z86.32 Personal history of gestational diabetes (principal)
CPT/HCPCS: 36415; 82950

== ENCOUNTER 2024-02-15 22:27 | Emergency (ER) | payer MEDICAID, SELFPAY ==
[2024-02-15 22:28] VITALS: BP 98/83; PULSE 88; RESP 16; TEMP 36.4; O2SAT 96; BMI 47.2
[2024-02-15 23:01] VITALS: BP 116/65; PULSE 60
--- NOTE | 2024-02-15 23:02 | EDS_ITS ---
HPI HPI - Female History of Present Illness Chief Complaint: Vag Bleeding Informant: patient and spouse/S.O. Narrative Narrative: 43-year-old female has a neplanon implant in her arm for control purposes, she has had vaginal bleeding off-and-on for months, she states it started earlier in the year and she had an outpatient ultrasound in [place], [place] that her family doctor ordered that showed uterine fibroids. She was referred to a assembler molded frames but she never made an appointment or saw 1. Now the bleeding has recurred for the last couple months, it has been heavier for the last 1.5 weeks, and for the same amount of time she has had left pelvic pain off and on that is different than menstrual cramping type pain she has had in the past. The pain is not there currently. Today she had a near syncopal episode and is concerned about the blood loss. Today she has gone through 3 or 4 pads throughout the entire day, she presents at around 11 PM Saturday night because of these issues. No other symptoms of other acute illness. PFSH PFS Medical History Anxiety with depression Diabetes Allergy/AdvReac Type Severity Reaction Status Date / Time No Known Allergies Allergy Verified 02/15/24 22:48 Surgical History (Updated 02/15/24 @ 22:48 by Beverly Rodriguez) Hx of appendectomy Social History Smoking Status: Light Smoker (<10/day) ROS ROS ED Constitutional Constitutional ED: Reports fatigue; Denies chills or fever(s) Eyes Eyes: Denies change in vision or diplopia ENT ENT ED: Denies rhinorrhea or sore throat Cardiovascular Cardiovascular: Denies chest pain or palpitations Respiratory/Chest Respiratory/Chest: Denies cough or dyspnea Gastrointestinal Gastrointestinal: Reports abdominal pain; Denies diarrhea, nausea or vomiting Genitourinary Genitourinary ED: Reports LMP (females 10-50) Details: Comment: (never, since I've had my hormone implant) and other Details: Looks like blood when she urinates but she is pretty sure it is vaginal. No issues urinating. ; Denies difficulty urinating, dysuria or urinary frequency Musculoskeletal Musculoskeletal: Denies back pain or neck pain Integumentary Denies abscess or rash Neurologic Neurologic: Denies headache(s), paresthesias or weakness Psychiatric Psychiatric: Denies suicidal thoughts EXAM Physical Exam Const Vital Signs: 02/15/24 22:28 02/15/24 23:01 02/16/24 00:27 Temperature 97.5 F L Temperature Source Temporal Pulse Rate 88 65 Pulse Rate [Lying] 60 Pulse Rate [Sitting (for 1 minute prior to obtaining)] Pulse Rate [Standing (for 1 minute prior to obtaining)] Respiratory Rate 16 18 Blood Pressure 98/83 H 116/65 Blood Pressure [Lying] 116/65 Blood Pressure [Sitting (for 1 minute prior to obtaining)] Blood Pressure [Standing (for 1 minute prior to obtaining)] Blood Pressure Mean 88 82 Blood Pressure Mean [Lying] 82 Blood Pressure Mean [Sitting (for 1 minute prior to obtaining)] Blood Pressure Mean [Standing (for 1 minute prior to obtaining)] Pulse Ox 96 94 Oxygen Delivery Method Room Air Room Air 02/16/24 00:27 02/16/24 00:32 Temperature Temperature Source Pulse Rate Pulse Rate [Lying] Pulse Rate [Sitting (for 1 minute prior to obtaining)] 64 Pulse Rate [Standing (for 1 minute prior to obtaining)] 81 Respiratory Rate Blood Pressure Blood Pressure [Lying] Blood Pressure [Sitting (for 1 minute prior to obtaining)] 132/86 H Blood Pressure [Standing (for 1 minute prior to obtaining)] 134/91 H Blood Pressure Mean Blood Pressure Mean [Lying] Blood Pressure Mean [Sitting (for 1 minute prior to obtaining)] 101 Blood Pressure Mean [Standing (for 1 minute prior to obtaining)] 105 Pulse Ox Oxygen Delivery Method Positive well nourished, well developed and obese Constitutional Narrative: well-appearing General Appearance ED: well developed and NAD Nutritional Appearance: obese HEENT Reports moist mucous membranes normocephalic and atraumatic Eyes PERRL and EOMs intact bilaterally Neck full ROM and supple Resp normal respiratory effort and clear to auscultation bilaterally Cardio regular rate, regular rhythm and no murmurs GI non-tender and non-distended Auscultation: normoactive bowel sounds Palpation: soft Back/Spine no CVA tenderness General Back: other FROM Extremity normal to inspection General Extremety ED: Negative for edema, pulses abnormal or tenderness General Extremity: Negative for edema or pulses abnormal Neuro oriented x3, CN's II-XII intact bilaterally and no sensory deficits noted Sensorium / Orientation: awake and alert Motor Exam: strength 5/5 throughout Psych mental status grossly normal Skin no rashes or lesions noted and no wounds MDM MDM MDM Narrative Medical decision making narrative: As I discussed with the patient I do not have ultrasound available right now to do an ultrasound of her pelvis, for nonemergent issues. I am doing a to rule out ectopic which I have a low suspicion for, and I am obtaining her blood counts to assess for blood loss anemia given her symptoms and while we are doing I will do orthostatics and give her some IV fluids afterwards. The bleeding most likely is fibroid related, the pain in her left pelvis may be a different issue, and I think she should have an ultrasound but if her is negative it does not need to be done emergently, I have a very low suspicion for torsion given the history and the fact that she has no pain or tenderness right now. Hemoglobin excellent. She does have a bit of a leukocytosis, and her is negative ruling out ectopic . Given the leukocytosis I am adding on a urinalysis, given that she does not have any urinary symptoms but cannot tell if she is urinating blood or if it is related to her vaginal bleeding. The urine is negative for infection, mostly pos for blood. Her blood sugar came back at 635 and she complained a little pelvic pain on the RIGHT now. This in combination with her leukocytosis, I did obtain a CT of the abdomen/pelvis to rule out an acute intra-abdominal process. I reviewed the images and report is negative for any acute; I agree w/ the report. Given that she has no pain or tenderness in her pelvis right now, I really do not think it is highly likely that she has a tubo-ovarian abscess. Therefore although I still think getting an ultrasound of her ovary is reasonable, I think it can be done as an outpatient when that services available without having to transfer her to another hospital right now or call someone in from home in the middle of the night for an emergent ultrasound. She understands that and is in agreement. She is doing well after IV fluids orthostatics were negative. Referred to gynecology and setting her up for an outpatient pelvic ultrasound. I did speak with Dena Justin about this, she was covering for Dr. Almanzar, she recommends the outpatient ultrasound first before they would prescribe her any hormones or medications to try to help with the bleeding. I think that is okay, the patient was advised if she has bleeding more than a pad an hour for several hours at that point to return to the ER but she is nowhere near the right now Lab Data Attestation: I reviewed the patient's lab results. Labs: Laboratory Results - last 24 hr 02/15/24 02/16/24 23:09 00:25 WBC 14.6 H RBC 5.20 Hgb 15.0 Hct 45.0 MCV 86.5 MCH 28.8 MCHC 33.3 RDW Std Deviation 44.3 H RDW Coeff of Shari 14.1 Plt Count 298 MPV 9.9 Immature Gran % (Auto) 1.100 H Neut % (Auto) 83.9 H Lymph % (Auto) 11.1 L Braxton % (Auto) 3.8 Eos % (Auto) 0.0 Baso % (Auto) 0.1 Absolute Neuts (auto) 12.3 H Absolute Lymphs (auto) 1.62 Nucleated RBC % 0 Sodium 134 L Potassium 4.0 Chloride 102 Carbon Dioxide 21.0 Anion Gap 11 BUN 15 Creatinine 1.38 H Estim Creat Clear Calc 76.92 Est GFR (MDRD) Af Amer 54 L Est GFR (MDRD) Non-Af 44 L BUN/Creatinine Ratio 10.9 Glucose 635 H* Calcium 9.5 Serum , Qual NEGATIVE Urine Color Red Urine Clarity Sl. Cloudy Urine pH 6.0 Ur Specific [place] 1.010 Urine Protein 30 H Urine Glucose (UA) 1000 H Urine Ketones 5 H Urine Occult Blood 250 H Urine Nitrite Negative Urine Bilirubin Negative Urine Urobilinogen Normal Ur Leukocyte Esterase 25 H Urine RBC 25-50 SEEN Urine WBC 0 SEEN Ur Squamous Epith Cells 0 SEEN Urine Bacteria 0 SEEN Urine Mucus 0 SEEN Radiography Diagnostic Testing: Clinical Impression(s) from Imaging Studies Abdomen/Pelvis CT 02/16/24 00:22 IMPRESSION: 1. No acute abdominal pelvic abnormality. 2. Tiny nonobstructing calculus left kidney. Electronically Signed: Hema Diaz MD at 1:21 EDT , Discharge Plan Triage Chief Complaint: Vag Bleeding ED Provider: Yee,Juan Carlos Dx/Rx/DC Orders Clinical Impression: Abnormal uterine bleeding (AUB), Fibroids, Pelvic pain Instructions: ED Dysfunctional Uterine Bleeding, ED Uterine Fibroids Other Ambulatory Orders: Pelvic (Non ) (Routine) Facility: [facility] - Location: [facility] Ordered By: Dr. Juan Carlos Fraire Primary Care Provider: Chapincito Garrett Referrals: Chapincito Garrett DO [Primary Care Provider] - Aylin Monson DO [Med Staff - Active Staff] - As soon as possible Print Language: Maori Disposition Disposition: Home, Self Care
[2024-02-15 23:18] LABS: Absolute Lymphocyte Count 1.62 X10^3/uL (0.83-4.51); Absolute Neutrophil Count 12.3 X10^3/uL (2.0-7.7); Basophil# 0.02 X10^3/uL; Basophil% 0.1 % (0-1); Lymphocyte # 1.62 X10^3/ul (0.83-4.51); Lymphocyte % 11.1 % (19-41); Mean Corp Hgb Conc 33.3 g/dL (32-36); Mean Corpuscular Hgb 28.8 pg (27.0-32.0); Mean Corpuscular Volume 86.5 fL (81-99); Mean Platelet Vol. 9.9 fl (6.2-12.0); Monocyte# 0.55 X10^3/uL; Monocyte% 3.8 % (0-10); NRBC Flagged by Analyzer 0 % (0-5); Neutrophil # 12.25 X10^3/uL (2.7-7.7); Neutrophil % 83.9 % (47-70); Platelet Count 298 K/mm3 (150-450); RBC Distribution Width CV 14.1 % (11.6-14.6); RBC Distribution Width SD 44.3 fl (35.1-43.9); White Blood Count 14.6 K/mm3 (4.4-11.0)
[2024-02-15 23:29] LABS: Internal QC Validated? YES +Cl - CLEAR BKGD; Pregnancy, Serum, hCG Quali. NEGATIVE Negative; Record Kit Lot#, Serum Preg. 772476
[2024-02-15 23:57] LABS: Anion Gap 11 (5-15); BUN 15 mg/dL (7-18); BUN/Creat Ratio 10.9 RATIO (10-20); Calcium,Total 9.5 mg/dL (8.5-10.1); Chloride 102 mmol/L (98-107); Creatinine, Serum 1.38 mg/dL (0.55-1.02); EST Glomerular Filtration Rate 44 mL/min (>60); Est Glom Filt Rate - Afr Amer 54 mL/min (>60); Estimated Creatinine Clearance 76.92 ml/min; Glucose 635 mg/dL (74-106); Sodium Level 134 mmol/L (136-145)
--- NOTE | 2024-02-16 00:22 | CT_ITS ---
EXAM: CT ABDOMEN AND PELVIS WITHOUT INTRAVENOUS CONTRAST CLINICAL INDICATION: llq pain, leukocytosis TECHNIQUE: Helically acquired images were obtained of the abdomen and pelvis without intravenous contrast. This CT exam was performed using one or more of the following dose reduction techniques: automated exposure control, adjustment of the mA and/or kV according to patient size, and/or use of iterative reconstruction technique. RADIATION DOSE: CTDIvol = 22.87 mGy, DLP = 1274.35 mGy-cm COMPARISON: No relevant prior studies available. FINDINGS: LOWER THORAX: Unremarkable. Lung bases are clear. No cardiomegaly. No significant pericardial effusion. ABDOMEN: LIVER: Unremarkable. Homogeneous. GALLBLADDER AND BILE DUCTS: Unremarkable. No calcified gallstones. No gallbladder distention or wall edema. No intra- or extrahepatic biliary ductal dilation. PANCREAS: Unremarkable. No focal cystic mass. SPLEEN: Unremarkable. Normal size without focal cystic or solid mass. ADRENALS: Unremarkable. No nodules. KIDNEYS AND URETERS: Tiny nonobstructing calculus left kidney. Normal renal size and position. STOMACH AND BOWEL: Unremarkable. No stomach or bowel distention. No focal inflammatory change. PELVIS: APPENDIX: Normal appendix. BLADDER: Unremarkable. REPRODUCTIVE: Unremarkable as visualized. No mass. ABDOMEN and PELVIS: INTRAPERITONEAL SPACE: Unremarkable. No ascites or other fluid collection. No free air. BONES/JOINTS: Unremarkable. No suspicious lytic or blastic abnormality. SOFT TISSUES: Unremarkable. No discrete abdominal or pelvic wall hernia. VASCULATURE: Unremarkable. Abdominal aorta is non-dilated. LYMPH NODES: Unremarkable. No enlarged lymph nodes. CT/Abdomen/Pelvis without Cont IMPRESSION: 1. No acute abdominal pelvic abnormality. 2. Tiny nonobstructing calculus left kidney. Electronically Signed: Hema Diaz MD at 1:21 EDT ,
[2024-02-16] MEDS: 0.9% Normal Saline (500mL Bag) 500 ML 999 ML IV (00:24)
[2024-02-16 00:27] VITALS: BP 116/65; BP 132/86; PULSE 64; PULSE 65; RESP 18; O2SAT 94
[2024-02-16 00:32] VITALS: BP 134/91; PULSE 81
[2024-02-16] MEDS: Insulin Lispro 100 UNIT/ML INSULN.PEN 20 UNIT SC (00:35)
[2024-02-16 00:36] LABS: Bacteria 0 SEEN /hpf (None Seen); Mucous, Urine 0 SEEN /hpf (<or=2+); Squamous Epithelial Cells - UA 0 SEEN /hpf (5-10); White Blood Cells 0 SEEN /hpf (0-5)
[2024-02-16 00:37] LABS: Color, Urine Red (Yellow); Glucose, Dipstick 1000 mg/dl (Normal); Ketone-Dipstick 5 mg/dl (Negative); Leukocyte Esterase-Dipstick 25 /ul (Negative); Nitrite-Dipstick Negative (Negative); Occult Blood-Urine 250 /ul (Negative); Protein-Dipstick 30 mg/dl (Negative); Urine Bilirubin Dipstick Negative (Negative); Urine Clarity Sl. Cloudy (Clear); Urine Urobilinogen Normal (Normal)
[2024-02-16 01:18] LABS: Red Blood Cells-Urine 25-50 SEEN /hpf (0-5)
[2024-02-16 01:54] VITALS: BP 114/89; PULSE 76; RESP 20; TEMP 36; O2SAT 96
== END 2024-02-16 01:59 | disposition home or self-care (01) ==
PROVIDERS: Emergency Provider Emergency Medicine; PCP Family Medicine; Visit Provider Emergency Medicine
DX: N93.9 Abnormal uterine and vaginal bleeding, unspecified (principal); E11.9 Type 2 diabetes mellitus without complications; R10.2 Pelvic and perineal pain; D25.9 Leiomyoma of uterus, unspecified; F17.200 Nicotine dependence, unspecified, uncomplicated; R55 Syncope and collapse
CPT/HCPCS: 74176; 80048; 81001; 84703; 85025; 96360; 99283; J7040; A4216

== ENCOUNTER → 2024-02-20 | Outpatient (CLI) | payer MEDICAID, SELFPAY ==
--- NOTE | 2024-02-20 12:27 | US_ITS ---
HISTORY: left pelvic pain, abn vag bleeding -- results to [facility]. TECHNIQUE: Transvaginal pelvic ultrasound was performed with perez scale and color Doppler evaluation. 58 images. COMPARISON: CT 02/16/2024. FINDINGS: UTERUS: 8.4 x 3.8 x 5.3 cm. Heterogeneous echotexture without focal lesion. ENDOMETRIAL THICKNESS: 11 mm, heterogeneous with small calcifications. RIGHT OVARY: 2.2 x 2.2 x 2.8 cm. No adnexal masses. LEFT OVARY: 2.5 x 3.2 x 2.7 cm. 1.8 cm dominant follicle. FREE FLUID: None. US/Transvaginal Non- IMPRESSION: Mildly heterogeneous uterus without focal lesion demonstrated. Dominant follicle in the left ovary.
== END | disposition home or self-care (01) ==
LOC: US 12:24
PROVIDERS: PCP Nurse Practitioner Family; Referring Provider Emergency Medicine; Visit Provider Emergency Medicine
DX: N93.9 Abnormal uterine and vaginal bleeding, unspecified (principal); R10.2 Pelvic and perineal pain
CPT/HCPCS: 76830